=== PATIENT | female | born 1960 | race Caucasian/White ===

== ENCOUNTER 2017-06-09 09:47 | Day surgery (SDC) | payer BC ==
[~2017-06-09 09:47] MED LIST: Lactated Ringers 1,000 ML IV SCH; Sodium Chloride 0.9% 10 ML Syringe FLUSH PRN
--- NOTE | 2017-06-09 10:42 | PCM.HPR ---
H & P Addendum review - H & P Addendum Review Date of Original H & P: 05/25/17 Date Reviewed: 06/09/17 Time Reviewed: 10:42 Patient was Examined: No Changes
[2017-06-09] MEDS ORDERED: Midazolam 1 MG/ML 2 ML SDV ONE ×2 (10:46→10:50)
[2017-06-09] MEDS ORDERED: Propofol 200 MG/20 ML SDV ONE ×2 (10:46→10:50)
[2017-06-09] MEDS ORDERED: fentaNYL 100 MCG/2 ML SDV ONE ×2 (10:46→10:50)
[2017-06-09] MEDS ORDERED: Lidocaine 2% 5 ML SDV ONE (10:50)
--- NOTE | 2017-06-09 11:25 | PCM.OPNOTE ---
- General Post-Op/Procedure Note Date of Surgery/Procedure: 06/09/17 Operative Procedure(s): EGD. Colonoscopy Findings: Hiatal Hernia Normal Colon Pre Op Diagnosis: GERD. Hx Polyps Post-Op Diagnosis: Same Anesthesia Technique: MAC Primary Surgeon: Olman Pal Anesthesia Provider: Nery Mcdonnell Complications: None Condition: Good Free Text/Narrative:: Intake & Output 06/08/17 06/09/17 06/09/17 22:59 06:59 14:59 Intake Total 600 Balance 600
--- NOTE | 2017-06-10 08:20 | OR ---
Date of Procedure: 06/09/2017 PREOPERATIVE DIAGNOSES: 1. Gastroesophageal reflux disease. 2. History of colon polyps. POSTOPERATIVE DIAGNOSES: 1. Small hiatal hernia. 2. Normal colonoscopy. PROCEDURES: 1. EGD. 2. Colonoscopy. ANESTHESIA: IV sedation. PROCEDURE: The patient was brought to the procedure room where she was placed on her left side and IV sedation administered. Oral bite block was placed and the upper endoscope advanced into the esophagus under direct vision without difficulty. Vocal cords were viewed and were normal. The scope was advanced to the third portion of the duodenum. Duodenum and pylorus were normal. Antrum and body of the stomach were normal. Retroflexion reveals a small regular hiatal hernia. Squamocolumnar junction appears normal. There was no evidence of reflux esophagitis. All mucosal surfaces were normal in appearance. Air was removed from the stomach. The scope withdrawn. The patient tolerated this portion of the procedure well. Next, colonoscopy was performed after digital rectal exam was done which was normal. Colonoscope was inserted and advanced to the level of the cecum without difficulty. Cecal position was confirmed by identifying the appendiceal lumen and ileocecal valve. Prep was good and surfaces were well visualized. Upon withdrawing the scope, the ascending, transverse, and descending colon were normal in appearance. Sigmoid colon and rectum were normal. Retroflexion was normal. Air was removed and the scope withdrawn. The patient tolerated the procedure well and returned to recovery in stable condition. The patient is feeling 100% better on omeprazole. I have asked her to complete her course and then try to go back off it. She should undergo routine colon screening again in five years. CHRIS GONZALEZ MD /[id number]
== END 2017-06-09 13:06 | disposition home or self-care (01) ==
LOC: LL.SDS 09:47
PROVIDERS: ATTEND Surgery
DX: K21.9 Gastro-esophageal reflux disease without esophagitis (principal); K44.9 Diaphragmatic hernia without obstruction or gangrene; I10 Essential (primary) hypertension; Z86.010 Personal history of colon polyps; F41.9 Anxiety disorder, unspecified; G47.00 Insomnia, unspecified; K58.9 Irritable bowel syndrome, unspecified; F32.9 Major depressive disorder, single episode, unspecified; Z88.2 Allergy status to sulfonamides; Z88.1 Allergy status to other antibiotic agents
CPT/HCPCS: 43235; 45378; J2250; J2704; J3010; J7120